=== PATIENT | female | born 1950 | race Hispanic/Latino ===

== ENCOUNTER 2018-08-04 22:22 | Observation (INO) | payer BC, MEDICARE ==
[~2018-08-04] VITALS: Ht 160 cm; Wt 83.2 kg
[2018-08-04] MEDS ORDERED: ACETAMINOPHEN EXTRA STRENGTH 500 MG TABLET ONE (22:55)
[2018-08-04] MEDS ORDERED: ONDANSETRON HCL 4 MG/2 ML VIAL ONE (22:55)
[2018-08-04] MEDS ORDERED: SODIUM CHLORIDE 0.9% 1000ML 1,000 ML IV ONE (22:56)
[2018-08-04] MEDS ORDERED: MORPHINE SULFATE 4 MG/1ML SYG ONE (22:56)
[2018-08-04 23:05] LABS: BASOPHILS % (AUTO) 0.3 % (0.0-5.0); HEMATOCRIT 37.1 % (36-48); LYMPHOCYTES % (AUTO) 3.4 % (21.0-51.0); MEAN CORPUSCULAR HEMOGLOBIN 29.6 pg (27.0-33.0); MEAN CORPUSCULAR HGB CONC 33.3 g/dL (32.0-36.0); MONOCYTES % (AUTO) 2.6 % (3.0-13.0); NEUTROPHILS % (AUTO) 93.7 % (40.0-77.0); PLATELET COUNT (AUTO) 234 K/uL (130-400); RED BLOOD CELL COUNT(AUTO) 4.17 MIL/uL (4.00-5.50); RED CELL DISTRIBUTION WIDTH 14.4 % (11.0-15.5); WHITE BLOOD COUNT (AUTO) 16.3 K/uL (4.8-10.8)
[2018-08-04 23:08] LABS: APPEARANCE,URINE Clear (CLEAR); BILIRUBIN,URINE Negative (NEGATIVE); COLOR,URINE Yellow (YELLOW); GLUCOSE, URINE (UA) Negative (NEGATIVE); KETONES,URINE Negative (NEGATIVE); LEUKOCYTE ESTERASE ,URINE Trace (NEGATIVE); NITRATE,URINE Negative (NEGATIVE); OCCULT BLOOD,URINE Large (NEGATIVE); PH,URINE 6.5 (5.0-8.0); PROTEIN,URINE Negative (NEGATIVE)
[2018-08-04 23:09] LABS: INR 1.03 (0.85-1.15); PARTIAL THROMBOPLASTIN TIME 31.9 SEC (26.3-35.5); PROTHROMBIN TIME 10.8 SEC (9.6-11.6)
[2018-08-04 23:17] LABS: BACTERIA,URINE None Seen /HPF (None Seen); SQUAMOUS EPITHELIAL CELL,UR Rare /HPF (0-2); WBC,URINE 0-1 /HPF (0-1); YEAST,URINE BUDDING Rare /HPF (None Seen)
[2018-08-04 23:24] LABS: CREATINE KINASE, TOTAL 121 U/L (21-232); MYOGLOBIN 105 ng/mL (10-92); TROPONIN I < 0.04 ng/mL (0.00-0.06)
[2018-08-04 23:32] LABS: CREATININE 1.2 mg/dL (0.5-1.5); POTASSIUM 4.7 mmol/L (3.5-5.1)
[2018-08-04 23:36] LABS: ALBUMIN 3.4 g/dL (3.5-5.0); BILIRUBIN,TOTAL 0.7 mg/dL (0.2-1.0); TOTAL PROTEIN, SERUM 8.3 g/dL (6.0-8.3)
[2018-08-04] MEDS ORDERED: IOHEXOL-350 75 ML VIAL IV ONE (23:48)
[2018-08-05] MEDS ORDERED: ZOSYN 3.375GM+NS 50ML 50 ML IV ONE (01:37)
[2018-08-05] MEDS ORDERED: PHARMACY COMMUNICATION MISC SCH ×2 (03:45)
[2018-08-05] MEDS ORDERED: MORPHINE SULFATE 2 MG/ML 1ML SYG IVP PRN (03:45)
--- NOTE | 2018-08-05 07:30 | NUR ---
ER ADMIT PATIENT RECEIVED FROM ER VIA WHEELCHAIR IN STABLE CONDITION. DENIES ABDOMINAL PAIN, NAUSEA OR VOMITING AT THIS TIME. ORIENTED TO ROOM AND USE OF CALL LIGHT. BED IS IN LOWEST POSITION AND LOCKED WITH PERSONAL BELONGINGS WITHIN REACH. NO QUESTIONS OR CONCERNS VOICED AT THIS TIME. WILL CONTINUE TO MONITOR.
[2018-08-05 07:41] VITALS: BP 133/66
[2018-08-05] MEDS: FAMOTIDINE/PF 20 MG/2 ML VIAL IV SCH ×2 (08:35→21:11)
[2018-08-05 11:18] VITALS: BP 142/60
--- NOTE | 2018-08-05 12:50 | NUR ---
Patient voicing nausea when she tries to eat and has a bothersome headache, placed call to Dr. Bernard to report it to him and to obtain orders. Family members in the room.
[2018-08-05] MEDS ORDERED: KETOROLAC TROMETHAMINE 15MG/ML IV PRN (15:00)
[2018-08-05] MEDS ORDERED: ONDANSETRON HCL 4 MG/2 ML VIAL IVP PRN (15:00)
[2018-08-05 16:05] VITALS: BP 122/62
[2018-08-05 19:15] VITALS: BP 108/53
[2018-08-05] MEDS: SODIUM CHLORIDE 0.9% 1000ML 1,000 ML IV SCH (21:16)
--- NOTE | 2018-08-05 21:30 | NUR ---
NOTE ATTEMPTED TO PAGE DR. SOTO TO ASK IF HE IS COMING TONIGHT, PATIENT/FAMILY ARE INQUIRING. ANSWERING SERVICE SAYS HE DOES NOT ANSWER HIS PHONE AND ARE NOT ABLE TO LEAVE MESSAGE. SAYS SHE WILL TRY AGAIN.
[2018-08-05 23:19] VITALS: BP 121/57
[2018-08-06 03:05] VITALS: BP 128/62
[2018-08-06] MEDS: SODIUM CHLORIDE 0.9% 1000ML 1,000 ML IV SCH ×3 (04:00→18:24)
[2018-08-06 07:38] VITALS: BP 131/68
[2018-08-06] MEDS: PANTOPRAZOLE SODIUM 40 MG TABLET.DR PO SCH (08:20)
[2018-08-06] MEDS: FAMOTIDINE/PF 20 MG/2 ML VIAL IV SCH ×2 (08:20→21:11)
[2018-08-06 11:17] VITALS: BP 123/62
[2018-08-06 16:36] VITALS: BP 136/65
--- NOTE | 2018-08-06 17:15 | NUR ---
DR. CHARLES SOTO IN TO SEE PATIENT. NEW ORDERS RECEIVED.
[2018-08-06 19:14] VITALS: BP 138/57
[2018-08-06] MEDS: ZOSYN 3.375GM+NS 50ML 50 ML IV SCH (21:11)
--- NOTE | 2018-08-06 22:07 | NUR ---
NOTE RECEIVED CALL FROM [employer] MACHINE OPERATOR. WANTS CLARIFICATION SINCE PATIENT HAD US OF ABD LESS THAN 24HRS AGO. CONTACTED DR. SOTO TO ASK REGARDING REPEATING US OF ABDOMEN. READ HIM THE IMPRESSION ON THE US DONE IN 08/05. DR. SOTO SAID TO CANCEL HE DOES NOT NEED REPEAT, HE SAID HE DIDN'T SEE THE OTHER RESULT. NOTIFIED PATIENT.
[2018-08-06 23:18] VITALS: BP 124/61
[2018-08-07 04:00] VITALS: BP 129/61
[2018-08-07] MEDS: ZOSYN 3.375GM+NS 50ML 50 ML IV SCH ×2 (04:16→12:23)
[2018-08-07 08:07] VITALS: BP 139/63
[2018-08-07] MEDS: FAMOTIDINE/PF 20 MG/2 ML VIAL IV SCH (09:01)
[2018-08-07] MEDS: PANTOPRAZOLE SODIUM 40 MG TABLET.DR PO SCH (09:01)
[2018-08-07 11:30] VITALS: BP 127/58
--- NOTE | 2018-08-07 13:04 | NUR ---
CM Note Left message regarding plan. Change to IN vs Discharge. No answer. CM to continue to follow. CD
[2018-08-07 16:36] VITALS: BP 145/72
--- NOTE | 2018-08-07 16:45 | NUR ---
CM NOTE Called to follow up on plan for patient and possible dc orders. CD
--- NOTE | 2018-08-07 19:50 | NUR ---
NOTE DISCHARGE INSTRUCTIONS GIVEN/REVIEWED WITH PATIENT. VERBALIZED UNDERSTANDING. SON HERE TO TAKE PATIENT HOME. ACCOMPANIED BY [employer]ER, WAS TAKEN DOWN TO ENTRANCE.
== END 2018-08-07 19:50 | disposition home or self-care (01) ==
LOC: EDH 22:22 → EDHIP 08-05 03:19 → 4AH 08-05 06:51
PROVIDERS: ADMIT Internal Medicine; ATTEND Internal Medicine
DX: A41.9 Sepsis, unspecified organism (principal); R11.2 Nausea with vomiting, unspecified; K52.9 Noninfective gastroenteritis and colitis, unspecified; K85.90 Acute pancreatitis without necrosis or infection, unspecified; N28.9 Disorder of kidney and ureter, unspecified; N39.0 Urinary tract infection, site not specified; N83.201 Unspecified ovarian cyst, right side; N83.202 Unspecified ovarian cyst, left side; Z90.710 Acquired absence of both cervix and uterus; Z79.899 Other long term (current) drug therapy
CPT/HCPCS: 36415; 71045; 74177; 76705; 80053; 81001; 82550 ×2; 83605; 83690; 83874; 84478; 84484; 85025; 85610; 85730; 87040 ×2; 87088; 87804 ×2; 93005; 96361 ×2; 96365; 96366 ×2; 96375; 96376 ×3; 99283; G0378 ×64; J1885; J2270; J2405 ×2; J2543 ×4; J3490 ×5; J7030 ×3; Q9967